=== PATIENT | female | born 1965 | race American Indian/Alaskan Native ===

== ENCOUNTER 2016-08-14 17:58 | Emergency (ER) | payer MEDICAID ==
[2016-08-14 17:59] VITALS: BMI 45.4
[2016-08-14 20:34] LABS: BASO # 0.1 K/uL (0.0-0.2); BASO % 0.6 % (0.0-2.0); EOS # 0.2 K/uL (0.0-0.7); EOS % 1.6 % (0.0-4.0); HEMATOCRIT 42.4 % (34.0-47.0); LYMPH # 3.2 K/uL (1.0-4.3); LYMPH % 27.9 % (20.0-40.0); MEAN CELL VOLUME 84.2 fL (81.0-99.0); MEAN CORPUSCULAR HEMOGLOBIN 27.5 pg (27.0-31.0); MEAN CORPUSCULAR HGB CONC 32.7 g/dL (33.0-37.0); MEAN PLATELET VOLUME 8.7 fL (7.2-11.7); MONO # 1.1 K/uL (0.0-0.8); MONO % 9.9 % (0.0-10.0); RED CELL DISTRIBUTION WIDTH 15.4 % (11.5-14.5); WHITE BLOOD COUNT 11.4 K/uL (4.8-10.8)
[2016-08-14 20:44] LABS: CHLORIDE 102 mmol/L (98-107)
[2016-08-14 20:45] LABS: POTASSIUM 4.5 mmol/L (3.6-5.2); SODIUM 139 mmol/L (132-148)
[2016-08-14 20:47] LABS: ALB/GLOB RATIO 1.1 (1.0-2.1); ALKALINE PHOSPHATASE 74 U/L (38-126); AST/SGOT 25 U/L (14-36); BILIRUBIN,TOTAL 0.4 mg/dL (0.2-1.3); BLOOD UREA NITROGEN 13 mg/dL (7-17); CARBON DIOXIDE 24 mmol/L (22-30); GFR AFRICAN-AMERICAN > 60; GLUCOSE,RANDOM 91 mg/dL (65-105)
[2016-08-14 20:48] LABS: ALT/SGPT 16 U/L (9-52); CALCIUM 9.6 mg/dl (8.6-10.4)
[2016-08-14 20:52] LABS: RBC URINE 2 /hpf (0-3); URINE BACTERIA RARE (<OCC); URINE BILIRUBIN NEGATIVE (NEGATIVE); URINE BLOOD NEGATIVE (NEGATIVE); URINE COLOR Yellow (YELLOW); URINE GLUCOSE (UA) NORMAL (Normal); URINE KETONE TRACE mg/dL (NEGATIVE); URINE PROTEIN NEGATIVE (NEGATIVE); URINE UROBILINOGEN NORMAL mg/dL (0.2-1.0); WBC URINE 4 /hpf (0-5)
[2016-08-14 20:53] LABS: URINE LEUKOCYTE ESTERASE NEGATIVE Leu/uL (Negative)
--- NOTE | 2016-08-14 21:37 | C.PDOC ---
Time Seen by Provider: 08/14/16 19:54 Chief Complaint (Nursing): Dizziness/Lightheaded History Per: Patient Onset/Duration Of Symptoms: Days (few), Intermittent Episodes Current Symptoms Are (Timing): Still Present Associated Symptoms Preceding Syncopal Episode: Lightheadedness Seizure Or Post-ictal Symptoms: None Possible Causative Factor(s): Other (Recent emotional stress) Fall Associated With With Symptoms: No Severity: Moderate Additional History Per: Prior Records - Symptoms Of CVA Associated Symptoms: denies: Impaired Speech, Seizure Activity, New Vision Deficit(Left), New Vision Deficit(Right), Decreased Ability To Walk, New Confusion Recent Head Trauma: No Past Medical History Reviewed: Historical Data, Nursing Documentation, Vital Signs Vital Signs: Last Vital Signs Temp 97.5 F L 08/14/16 18:06 Pulse 75 08/14/16 18:06 Resp 16 08/14/16 18:06 BP 137/85 08/14/16 18:06 Pulse Ox 97 08/14/16 18:06 - Medical History PMH: HTN Family History: States: Hypertension - Social History Hx Tobacco Use: No Hx Alcohol Use: No Hx Substance Use: No - Immunization History Hx Tetanus Toxoid Vaccination: No Hx Influenza Vaccination: No Hx Pneumococcal Vaccination: No Review Of Systems Except As Marked, All Systems Reviewed And Found Negative. Constitutional: Negative for: Fever, Weakness Eyes: Negative for: Vision Change ENT: Negative for: Ear Pain Cardiovascular: Negative for: Chest Pain, Palpitations Respiratory: Negative for: Shortness of Breath Gastrointestinal: Negative for: Vomiting, Abdominal Pain Musculoskeletal: Negative for: Neck Pain, Back Pain Skin: Negative for: Rash Neurological: Negative for: Weakness, Numbness, Incoordination, Change in Speech , Confusion, Seizures, Altered Mental Status, Headache Psych: Positive for: Anxiety. Negative for: Suicidal ideation Physical Exam - Physical Exam Appears: Non-toxic, No Acute Distress Skin: Normal Color, Warm, Dry, No Rash Head: Atraumatic, Normacephalic Eye(s): bilateral: Normal Inspection, PERRL, EOMI Neck: Normal ROM, Supple Cardiovascular: Rhythm Regular Respiratory: Normal Breath Sounds, No Accessory Muscle Use Gastrointestinal/Abdominal: Soft, No Tenderness Back: No CVA Tenderness Extremity: Normal ROM, No Pedal Edema, No Calf Tenderness Neurological/Psych: Oriented x3, Normal Speech, Normal Cognition, No Cerebellar Signs, Normal Motor, Normal Sensation ED Course And Treatment - Laboratory Results Result Diagrams: 08/14/16 20:32 08/14/16 20:32 Lab Interpretation: No Acute Changes ECG: Interpreted By Me, Viewed By Me ECG Rhythm: Sinus Rhythm, Nonspecific Changes ECG Interpretation: No Acute Changes Rate From EC O2 Sat by Pulse Oximetry: 97 Pulse Ox Interpretation: Normal Disposition Counseled Patient/Family Regarding: Studies Performed, Diagnosis, Need For Followup, Rx Given - Disposition Referrals: Darshan Soto MD [Staff Provider] - Disposition: HOME/ ROUTINE Disposition Time: 21:37 Condition: STABLE Additional Instructions: Follow up with your doctor this week for further evaluation and treatment. Return to the ER if you pass out, develop weakness, numbness, chest pain, shortness of breath, palpitations, worsening of symptoms or if you have any other concerns. Prescriptions: hydrOXYzine HCl [Atarax] 50 mg PO Q6 PRN #30 tab PRN Reason: Anxiety Instructions: Lightheadedness (ED) - Clinical Impression Clinical Impression: Dizziness
[2016-08-14 21:45] VITALS: BP 134/87; PULSE 61; RESP 18; TEMP 97.9; O2SAT 100
== END 2016-08-14 22:16 | disposition home or self-care (01) ==
LOC: C.ER 17:58
DX: R42 Dizziness and giddiness (principal)

== ENCOUNTER 2017-05-14 08:40 | Emergency (ER) | payer SELFPAY ==
[2017-05-14 08:52] VITALS: RESP 18; BMI 42.3
[2017-05-14] MEDS ORDERED: Oxycodone/Acetaminophen 5/325 mg Tab PO STA (09:23)
[2017-05-14] MEDS ORDERED: Oxycodone/Acetaminophen 5/325 mg Tab ONE (09:26)
--- NOTE | 2017-05-14 09:29 | C.PDOC ---
History Of Present Illness 52 yr old female presents to the ER with new onset of rash to the left abdominal for the past 4 days. States initially she had pain to area and now she has a rash. Patient reports history of chickenpox. Patient states "I have a lot of stress recently". Denies fever, chills, nausea, vomiting, weakness or numbness. NEW ONSET RASH L ABD X 4 DAYS. INITIALLY W PAIN TO AREA, NOW W RASH. HO CHICKENPOX. PS "HAVE ALOT OF STRESS RECENTLY". NO OTHER ASSOC SX EXAM NONTOXIC SKIN +SHINGLES L UPPER ABD WALL. NO CELLULITIS REMAINDER NEG Time Seen by Provider: 05/14/17 09:15 Chief Complaint (Nursing): Abnormal Skin Integrity History Per: Patient History/Exam Limitations: no limitations Onset/Duration Of Symptoms: Days (4) Current Symptoms Are (Timing): Still Present Past Medical History Reviewed: Historical Data, Nursing Documentation, Vital Signs Vital Signs: Last Vital Signs Temp 98.9 F 05/14/17 10:00 Pulse 77 05/14/17 10:00 Resp 18 05/14/17 10:00 BP 139/93 H 05/14/17 10:00 Pulse Ox 99 05/14/17 10:00 - Medical History PMH: Atrial Fibrillation, HTN Family History: States: Hypertension - Social History Hx Tobacco Use: No Hx Alcohol Use: No Hx Substance Use: No - Immunization History Hx Tetanus Toxoid Vaccination: No Hx Influenza Vaccination: No Hx Pneumococcal Vaccination: No Review Of Systems Except As Marked, All Systems Reviewed And Found Negative. Constitutional: Negative for: Fever, Chills Gastrointestinal: Negative for: Nausea, Vomiting Skin: Positive for: Rash (Left abdomen) Neurological: Negative for: Weakness, Numbness Physical Exam - Physical Exam Appears: Non-toxic, No Acute Distress Skin: Warm, Dry, Other ((+) Shingles, left upper abdomen wall. (-) Cellulitis) Head: Atraumatic, Normacephalic Eye(s): bilateral: Normal Inspection, PERRL, EOMI Oral Mucosa: Moist Lips: Normal Appearing Respiratory: Normal Breath Sounds Gastrointestinal/Abdominal: Normal Exam, Soft, No Tenderness, No Guarding, No Rebound Extremity: Normal ROM, No Swelling Neurological/Psych: Oriented x3, Normal Speech, Normal Motor ED Course And Treatment O2 Sat by Pulse Oximetry: 95 (RA) Pulse Ox Interpretation: Normal Medical Decision Making Medical Decision Making: PLAN: * Motrin PO * Zofran PO * Percocet PO Disposition Counseled Patient/Family Regarding: Diagnosis, Need For Followup, Rx Given - Disposition Referrals: your,pmd [Other] Disposition: HOME/ ROUTINE Disposition Time: 09:24 Condition: IMPROVED Prescriptions: Acetaminophen/Codeine [Tylenol/Codeine 300 MG/30 MG] 2 tab PO Q6H #20 tab Ibuprofen [Motrin] 600 mg PO Q6 #30 tab predniSONE [Prednisone] 60 mg PO DAILY #15 tab Instructions: Epifanio (ED) Forms: [employer] (Dutch) - Clinical Impression Clinical Impression: [place]sey - Scribe Statement The provider has reviewed the documentation as recorded by the Kecia Torres Provider Attestation: All medical record entries made by the Kecia were at my direction and personally dictated by me. I have reviewed the chart and agree that the record accurately reflects my personal performance of the history, physical exam, medical decision making, and the department course for this patient. I have also personally directed, reviewed, and agree with the discharge instructions and disposition.
[2017-05-14 10:12] VITALS: BP 139/93; PULSE 77; TEMP 98.9
[2017-05-14 10:30] VITALS: O2SAT 95
== END 2017-05-14 10:13 | disposition home or self-care (01) ==
LOC: C.ER 08:40
DX: B02.9 Zoster without complications (principal); I10 Essential (primary) hypertension; I48.91 Unspecified atrial fibrillation

== ENCOUNTER 2017-11-12 17:30 | Emergency (ER) | payer SELFPAY ==
[2017-11-12 18:01] VITALS: BMI 46.2
[2017-11-12 18:06] VITALS: BP 139/93; PULSE 91; RESP 16; TEMP 98.7; O2SAT 97
--- NOTE | 2017-11-12 18:20 | C.PDOC ---
History Of Present Illness 52 year old female with PMHx of HTN presents to the ED for evaluation. Patient states she was at the dentist for a tooth extraction she had her BP checked and it was elevated. Dentist refused to go the tooth extraction until patient's BP was normal. Patient admits that her BP medication ran out a few weeks a go and has not been taking them. Patient denies headache, blurry vision, dizziness, CP , SOB, weakness, numbness. Time Seen by Provider: 11/12/17 18:12 Chief Complaint (Nursing): Medical Clearance History Per: Patient History/Exam Limitations: no limitations Onset/Duration Of Symptoms: Hrs Current Symptoms Are (Timing): Still Present Reports Recently: Treated By A Physician (Dentist) Recent travel outside of the [place]: No Additional History Per: Patient Past Medical History Reviewed: Historical Data, Nursing Documentation, Vital Signs Vital Signs: Last Vital Signs Temp 98.7 F 11/12/17 18:01 Pulse 91 H 11/12/17 18:01 Resp 16 11/12/17 18:01 BP 139/93 H 11/12/17 18:01 Pulse Ox 97 11/12/17 18:22 - Medical History PMH: Atrial Fibrillation, HTN Surgical History: No Surg Hx Family History: States: Hypertension - Social History Hx Tobacco Use: No Hx Alcohol Use: No Hx Substance Use: No - Immunization History Hx Tetanus Toxoid Vaccination: No Hx Influenza Vaccination: No Hx Pneumococcal Vaccination: No Review Of Systems Constitutional: Negative for: Fever, Chills Eyes: Negative for: Vision Change Cardiovascular: Negative for: Chest Pain, Palpitations Respiratory: Negative for: Shortness of Breath Gastrointestinal: Negative for: Nausea, Vomiting Neurological: Negative for: Weakness, Numbness, Headache, Dizziness Physical Exam - Physical Exam Appears: Non-toxic, No Acute Distress Skin: Normal Color, Warm, Dry Head: Atraumatic, Normacephalic Eye(s): bilateral: Normal Inspection Neck: Normal ROM, Supple Chest: Symmetrical Cardiovascular: Rhythm Regular Respiratory: Normal Breath Sounds, No Rales, No Rhonchi, No Wheezing Extremity: Normal ROM, No Tenderness, No Swelling Neurological/Psych: Oriented x3, Normal Speech Gait: Steady ED Course And Treatment O2 Sat by Pulse Oximetry: 97 (ON RA) Pulse Ox Interpretation: Normal Medical Decision Making Medical Decision Making: Impression: Check for elevated BP while at dentist Plan: * While in the ED patient's BP was normal, patient was given refill for her HTN medications and follow up with her PMD. Disposition Counseled Patient/Family Regarding: Diagnosis, Need For Followup, Rx Given - Disposition Disposition: HOME/ ROUTINE Disposition Time: 18:18 Condition: STABLE Additional Instructions: You have been evaluated for HTN. Blood pressure was normal 139/93. Refill of HTN medication given. Take medications as prescribed for hypertension Follow up with your primary medical doctor or clinic in 2-5 days for further evaluation. Prescriptions: Metoprolol Succinate 25 mg PO DAILY #30 tab.er.24h Instructions: High Blood Pressure (DC) Forms: [employer] (Polish), Work Excuse - POA Present On Arrival: None - Clinical Impression Clinical Impression: HTN (hypertension) - PA / ST[employer]AND[employer] ASSOCIATE / Resident Statement MD/DO has reviewed & agrees with the documentation as recorded. - Scribe Statement The provider has reviewed the documentation as recorded by the Scribe Maxx Woodson All medical record entries made by the Scribe were at my direction and personally dictated by me. I have reviewed the chart and agree that the record accurately reflects my personal performance of the history, physical exam, medical decision making, and the department course for this patient. I have also personally directed, reviewed, and agree with the discharge instructions and disposition.
== END 2017-11-12 18:46 | disposition home or self-care (01) ==
LOC: C.ER 17:30
DX: I10 Essential (primary) hypertension (principal); I48.91 Unspecified atrial fibrillation